=== PATIENT | female | born 1955 | race Caucasian/White ===

== ENCOUNTER 2018-04-09 06:25 | Day surgery (SDC) | payer OTHER ==
[~2018-04-09] VITALS: Ht 165.1 cm; Wt 90.7 kg
[~2018-04-09 06:25] MED LIST: ACIPHEX20 MG PO; ADULT LOW DOSE81 MG PO; CARVEDILOL6.25 MG PO; HYDROCHLOROTHIA25 MG PO; KLOR-CON M1010 MEQ PO; LEVOTHYROXINE112 MCG PO; MULTIVITAMINS1 EAC8 PO; OCUVITE TABLET1 EAC1 PO; PREMARIN0.45 MG PO; SPIRONOLACTONE25 MG PO; TELMISARTAN80 MG PO
--- NOTE | 2018-04-09 08:05 | NUR ---
04/09/18 0805 Arpita Villagomez 0755- PT ARRIVES TO PACU, REACTIVE TO VERBAL STIMULI. INSTANTLY FALLS BACK TO SLEEP. OXYGEN SAT HIGH 90'S ON 4L VIA NC. 0800- DR. LOPES AT THE BEDSIDE TO TALK WITH THE PT. 0803- OXYGEN TURNED OFF. OXYGEN SAT REMAINS MID TO HIGH 90'S ON RA.
--- NOTE | 2018-04-10 08:42 | OR ---
[facility] [address], [place] [address] Signed DATE OF OPERATION: 04/09/2018 SURGEON: Shena Lopes MD PREOPERATIVE DIAGNOSES: 1. Family history of colon cancer (father). 2. Known history of diverticulosis. POSTOPERATIVE DIAGNOSIS: Sigmoid and left-sided diverticulosis, otherwise normal. PROCEDURE: Total colonoscopy to cecum. ANESTHESIA: Intravenous sedation, fentanyl 200 mcg and Versed 5 mg. 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 She is known to have diverticulosis. She is symptom free at this time. She is here for surveillance colonoscopy understanding the risks of bleeding, infection, and perforation. Notably she has no primary care provider currently, but is seeking one. She understands the risks of bleeding, infection, and perforation and wished to proceed. FINDINGS: The prep was excellent. Complete colonoscopy was undertaken of the cecum without question. There were diverticula of the sigmoid and left colon, but otherwise no polyps. No colitis or other abnormalities. DESCRIPTION OF PROCEDURE: The patient was brought to the endoscopy suite and placed in lateral decubitus position, given intravenous sedation to the point of slurred speech and nystagmus. Digital rectal examination was normal. An Olympus video colonoscope was passed in the rectum and manipulated throughout the colon. Diverticula were noted in the sigmoid and left colon. Additional sedation was given as needed. The scope was ultimately advanced to the cecum without question where typical anatomy was noted. The ileocecal valve was normal as well. The scope was Electronically Signed By: SHENA LOPES MD 04/10/18 0842 PATIENT NAME: GILBERT ACEVEDO OPERATIVE REPORT DATE OF : 53 REPORT #: [id number] PHYSICIAN: SHENA LOPES MD PCP: HARPREET JEFFERSON NP REPORT IS CONFIDENTIAL AND NOT TO BE RELEASED WITHOUT AUTHORIZATION [facility] [address] [place], [place] [address] Signed withdrawn to the cecum and examination throughout, showed no sign of abnormality other than diverticula as previously noted. Retroflexed view in the rectum was normal. Scope was removed. The patient was taken to recovery room in good condition. CONCLUDING DIAGNOSIS: Diverticulosis. No evidence of polyps. PLAN: Recommend high-fiber diet. Repeat colonoscopy in 5 years or sooner if clinically indicated. MD EASTON Price/KAMRON /[id number] Copies: ~ Electronically Signed By: SHENA LOPES MD 04/10/18 0842 PATIENT NAME: GILBERT ACEVEDO OPERATIVE REPORT DATE OF : 53 REPORT #: [id number] PHYSICIAN: SHENA LOPES MD PCP: HARPREET JEFFERSON NP REPORT IS CONFIDENTIAL AND NOT TO BE RELEASED WITHOUT AUTHORIZATION
== END 2018-04-09 08:47 | disposition home or self-care (01) ==
LOC: DS 06:25 → OPS 06:25 → DS 06:45 → OPS 06:45
PROVIDERS: Surgery
PROC: 0DJD8ZZ Inspection of Lower Intestinal Tract, Via Natural or Artificial Opening Endoscopic (ICD-10-PCS; principal; 2018-04-09 06:45)
DX: Z12.11 Encounter for screening for malignant neoplasm of colon (principal); K57.30 Diverticulosis of large intestine without perforation or abscess without bleeding; I10 Essential (primary) hypertension; K21.9 Gastro-esophageal reflux disease without esophagitis; Z80.0 Family history of malignant neoplasm of digestive organs
CPT/HCPCS: 99153; G0500; J2250; J3010; J7120